=== PATIENT | female | born 1965 | race Hispanic/Latino ===

== ENCOUNTER 2017-09-07 15:11 | Emergency (ER) | payer BC ==
--- OUTSIDE RECORDS SUMMARY | 2017-09-07 15:14 | XMS REPORT | Clinical Summary ---
:1965 Author Organization [facility] Address [address] [place] [address] Care Team Providers Name Role Phone Asked, No Pcp Primary Care Provider Unavailable Allergies No Known Allergies Current Medications Prescription Sig. Disp. Refills Start Date End Date Status levothyroxine (SYNTHROID, Take 88 mcg by 3 04/08/2016 Active LEVOXYL) 88 mcg tablet mouth once daily. CONTOUR NEXT STRIPS strip once daily. 1 03/02/2016 Active test strips cephalexin (KEFLEX) 500 MG TAKE 1 CAPSULE 2 03/20/2016 Active capsule EVERY 8 HOURS DIRECTED cyclobenzaprine (FLEXERIL) Take 5 mg by mouth 1 03/26/2016 Active 5 mg tablet every 12 (twelve) hours as needed. glipiZIDE (GLUCOTROL) 10 Take 10 mg by 1 03/07/2016 Active MG 24 hr tablet mouth once daily. HYDROcodone-acetaminophen TAKE 1 TABLET BY 0 03/21/2016 Active (NORCO) 10-325 mg per MOUTH EVERY 4 TO 6 tablet HOURS NEEDED FOR PAIN metFORMIN (GLUCOPHAGE) Take 1,000 mg by 1 03/07/2016 Active 1,000 mg tablet mouth 2 (two) times a day. ondansetron (ZOFRAN) 4 MG Take 4 mg by mouth 2 03/20/2016 Active tablet every 8 (eight) hours as needed. LIVALO 4 mg tablet 04/08/2016 Active valACYclovir (VALTREX) 500 Take 500 mg by 4 02/14/2016 Active MG tablet mouth once daily. Active Problems Problem Noted Date Ductal carcinoma in situ (DCIS) of right breast 05/02/2016 Family History Medical History Relation Name Comments No Known Problems Daughter No Known Problems Daughter No Known Problems Daughter Cirrhosis Father No Known Problems Maternal Grandfather no info No Known Problems Maternal Grandmother no info COPD Mother No Known Problems Other maternal aunts/uncles 24 maternal aunts/uncles, no known info Ovarian cancer Paternal Aunt No Known Problems Paternal Aunt x4, 70s No Known Problems Paternal Grandfather no info Breast cancer Paternal Grandmother No Known Problems Paternal Uncle No Known Problems Paternal Uncle No Known Problems Sister Breast cancer Sister IDC Breast cancer Sister DCIS No Known Problems Son Relation Name Status Comments Daughter Alive Daughter Alive Daughter Alive Father (Age 49) Maternal Grandfather Maternal Grandmother Mother (Age 72) Other maternal aunts/uncles x24 Paternal Aunt (Age 60) Paternal Aunt Alive Paternal Grandfather Paternal Grandmother (Age 60) Paternal Uncle (Age 50) Paternal Uncle Alive Sister Alive Sister Alive Sister Alive Son Alive Social History Tobacco Use Types Packs/Day Years Used Date Former Smoker Sex Assigned at Date Recorded Not on file Last Filed Vital Signs Not on file Plan of Treatment Health Maintenance Due Date Last Done Comments CERVICAL CANCER SCREENING 1985 BREAST CANCER SCREENING 2014 COLON CANCER SCREENING 2014 SHINGRIX VACCINE (#1) 2014 INFLUENZA VACCINE 10/31/2017 Results Not on fileafter 09/06/2016 Insurance Payer Benefit Plan / Group Subscriber ID Type Phone Address BCBS BCBS CHOICE PPO/FEDERAL EMPL PPO xxxxxxxxx PPO y [phone] [place] [address]
[2017-09-07] MEDS ORDERED: ONDANSETRON 4 MG/2 ML VIAL ONE (16:48)
[2017-09-07] MEDS ORDERED: MORPHINE 4 MG/ML SYR ONE (16:48)
[2017-09-07] MEDS ORDERED: KETOROLAC 30 MG/ML INJ ONE (16:48)
[2017-09-07] MEDS ORDERED: METHOCARBAMOL 1,000 MG in NA CHLORIDE 0.9% 100 ML IV SCH (17:00)
--- NOTE | 2017-09-07 17:06 | RAD REPORT ---
EXAM DESCRIPTION: RAD - Chest Single View - 09/07/2017 5:01 pm CLINICAL HISTORY: Chest pain. COMPARISON: 08/22/2017, 12/02/2016 FINDINGS: Portable technique limits examination quality. The lungs are grossly clear. The heart is normal in size. No displaced fractures. IMPRESSION: No acute intrathoracic process suspected.
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
--- NOTE | 2017-09-07 17:53 | ER ---
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 Transition of care: patient was not received from another setting of care. Onset of symptoms was September 07, 2017. Risk Assessment: Do you want to hurt yourself or someone else? Patient reports no desire to harm self or others. Initial Sepsis Screen: Does the patient meet any 2 criteria? No. Patient's initial sepsis screen is negative. Does the patient have a suspected source of infection? No. Patient's initial sepsis screen is negative. Care prior to arrival: Medication(s) given: Tylenol, and cyclobenzaprine at 1000. 15:31 Method Of Arrival: Ambulatory ph 15:31 Acuity: BELKIS 4 ph Historical: - Allergies: 15:36 Symbicort; ph - PMHx: 15:36 Diabetes - NIDDM; High Cholesterol; ph - PSHx: 15:36 masectomy R side; ph - Immunization history:: Adult Immunizations unknown. - Social history:: Smoking status: Patient/guardian denies using tobacco. - Ebola Screening: : No symptoms or risks identified at this time. Screenin:15 Abuse screen: Denies threats or abuse. Denies injuries from another. Nutritional ss screening: No deficits noted. Tuberculosis screening: Never had TB. Fall Risk None identified. Assessment: 16:20 General: Appears distressed, uncomfortable, Behavior is cooperative, anxious, crying, ss Denies fever, feeling ill, fatigue, chills. Pain: Complains of pain in upper back, mid back Pain currently is 10 out of 10 on a pain scale. Quality of pain is described as aching, pinching, Pain began yesterday Is continuous, Aggravated by increased activity, repositioning, weight bearing, Noted to be crying, grimacing, quiet/stoic. Neuro: Level of Consciousness is awake, alert, obeys commands, Oriented to person, place, time, situation. Cardiovascular: Capillary refill < 3 seconds is brisk in bilateral fingers. Respiratory: Airway is patent Trachea midline Respiratory effort is even, unlabored. GI: Patient currently denies diarrhea, nausea, vomiting. EENT: Nares are clear Oral mucosa is moist. Throat is clear. Derm: Skin is intact, is healthy with good turgor, Skin is dry, Skin is pink, warm \\T\\ dry. normal. Musculoskeletal: Circulation, motion, and sensation intact. Range of motion: intact in all extremities, Swelling absent. 16:57 Reassessment: 4 mg of morphine initially ordered. after half of ordered morphine was ss administered, pt stated she did not like the way it made her feel and would not like to receive anymore medication. 18:04 Reassessment: Patient appears in no apparent distress at this time. Patient and/or ss family updated on plan of care and expected duration. Pain level reassessed. Patient is alert, oriented x 3, equal unlabored respirations, skin warm/dry/pink. Patient states feeling better. Patient states symptoms have improved. Pain: Pain currently is 3 out of 10 on a pain scale. Vital Signs: 15:34 BP 151 / 94; Pulse 92; Resp 18; Temp 98.6; Pulse Ox 96% on R/A; Weight 84.37 kg; Height ph 4 ft. 11 in. (149.86 cm); 15:34 Body Mass Index 37.57 (84.37 kg, 149.86 cm) ph ED Course: 15:14 Patient arrived in ED. mr 15:15 Prerna Sue MD is Private Physician. mr 15:34 Triage completed. ph 15:36 Arm band placed on. ph 16:15 Guicho Florentino MD is Attending Physician. kdr 16:15 Patient has correct armband on for positive identification. Bed in low position. Call ss light in reach. 16:38 Jessie Joiner, NORRIS is Primary Nurse. ss 16:44 Inserted saline lock: 20 gauge in left antecubital area, using aseptic technique. Blood ss collected. 17:01 X-ray completed. Portable x-ray completed in exam room. Patient tolerated procedure ml well. 17:01 CXR XRAY In Process Unspecified. EDMS 17:51 Prerna Sue MD is Referral Physician. kdr 18:07 No provider procedures requiring assistance completed. ss 18:15 IV discontinued, intact, bleeding controlled, No redness/swelling at site. Pressure ss dressing applied. Administered Medications: 14:56 Drug: morphine 2 mg Route: IVP; Site: left antecubital; ss 18:14 Follow up: Response: No adverse reaction; Pain is decreased ss 16:52 Drug: Zofran 4 mg Route: IVP; Site: left antecubital; ss 18:15 Follow up: Response: No adverse reaction ss 16:56 Drug: TORadol 30 mg Route: IVP; Site: left antecubital; ss 18:15 Follow up: Response: No adverse reaction; Pain is decreased ss 16:56 CANCELLED (Other Intervention Used): morphine 4 mg IVP once ss 17:14 Drug: Robaxin 1 grams Route: IVPB; Infused Over: 1 hrs; Site: left antecubital; ss 18:16 Follow up: IV Status: Completed infusion ss Outcome: 17:52 Discharge ordered by . kdr 18:15 Discharged to home via wheelchair, with family. ss 18:15 Condition: improved 18:15 Discharge instructions given to patient, family, Instructed on discharge instructions, follow up and referral plans. medication usage, Demonstrated understanding of instructions, follow-up care, Prescriptions given X 3. 18:16 Patient left the ED. ss Signatures: Dispatcher [employer] EDGuicho Tellez MD MD [facility] Massiel Silver, Jessie Ortega RN RN Albania Ochoa RN RN ph
== END 2017-09-07 18:16 | disposition home or self-care (01) ==
LOC: ER 15:11
DX: M79.1 Myalgia (principal); M62.830 Muscle spasm of back; Z88.8 Allergy status to other drugs, medicaments and biological substances
CPT/HCPCS: 71045; 96365; 96375; 99284; J2405; J2800

== ENCOUNTER 2017-11-17 10:29 | Emergency (ER) | payer BC ==
--- OUTSIDE RECORDS SUMMARY | 2017-11-17 10:31 | XMS REPORT | Clinical Summary ---
:1965 Author Organization [facility] Address [address] [place] [address] Care Team Providers Name Role Phone Asked, [...] INFLUENZA VACCINE 10/31/2017 Results Not on fileafter 11/16/2016 Insurance Payer Benefit Plan / Group Subscriber ID Type Phone Address BCBS BCBS CHOICE PPO/FEDERAL EMPL PPO xxxxxxxxx PPO y [phone] [place] [address]
[2017-11-17] MEDS ORDERED: IBUPROFEN 400 MG TAB ONE (11:34)
--- NOTE | 2017-11-17 11:40 | RAD REPORT ---
EXAM DESCRIPTION: RAD - Ankle Left 3 View -11/17/2017 11:26 am CLINICAL HISTORY: Left ankle pain status post injury FINDINGS: No fracture or dislocation is seen. Soft tissue swelling is present
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
--- NOTE | 2017-11-17 12:13 | EDPHYS ---
Physician Documentation [facility] Name: Vanessa Roger Age: 52 yrs Sex: Female : 1965 Arrival Date: 11/17/2017 Time: 10:32 Bed 14 Private MD: Prerna Sue C ED Physician Vince Caldwell HPI: 11/17 12:08 This 52 yrs old Female presents to ER via Ambulatory with complaints of Fall snw Injury. 12:08 Details of fall: The patient fell from an upright position, while walking. Onset: The snw symptoms/episode began/occurred suddenly, 1 day(s) ago. Associated injuries: The patient sustained left lateral malleolus and right knee, decreased range of motion. Severity of symptoms: At their worst the symptoms were moderate. The patient has not experienced similar symptoms in the past. The patient has not recently seen a physician, the patient's primary care provider is Dr. Dr. Sue. 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 YARDER: 10:52 LMP N/A - Post-menopause aj Historical: - Allergies: 10:52 Symbicort; aj - Home Meds: 10:52 Breo Ellipta 200-25 mcg/dose inhalation dsdv 1 puff once daily [Active]; ProAir HFA aj inhalation inhalation [Active]; Glucotrol XL Oral [Active]; Metformin Oral [Active]; levothyroxine oral [Active]; - PMHx: 10:52 Diabetes - NIDDM; High Cholesterol; aj - PSHx: 10:52 masectomy R side; aj - Immunization history:: Adult Immunizations up to date. - Social history:: Smoking status: Patient/guardian denies using tobacco. - Ebola Screening: : Patient negative for fever greater than or equal to 101.5 degrees Fahrenheit, and additional compatible Ebola Virus Disease symptoms Patient denies exposure to infectious person Patient denies travel to an Ebola-affected area in the 21 days before illness onset No symptoms or risks identified at this time. ROS: 11:58 Constitutional: Negative for fever, chills, and weight loss, Eyes: Negative for injury, snw pain, redness, and discharge, ENT: Negative for injury, pain, and discharge, Neck: Negative for injury, pain, and swelling, Cardiovascular: Negative for chest pain, palpitations, and edema, Respiratory: Negative for shortness of breath, cough, wheezing, and pleuritic chest pain, Abdomen/GI: Negative for abdominal pain, nausea, vomiting, diarrhea, and constipation, Back: Negative for injury and pain, Skin: Negative for injury, rash, and discoloration, Neuro: Negative for headache, weakness, numbness, tingling, and seizure. 11:58 MS/extremity: Positive for injury or acute deformity, pain, of the left lateral malleolus and left medial malleolus, also tender to right knee s/p fall. Exam: 11:58 Constitutional: This is a well developed, well nourished patient who is awake, alert, snw and in no acute distress. Head/Face: Normocephalic, atraumatic. Eyes: Pupils equal round and reactive to light, extra-ocular motions intact. Lids and lashes normal. Conjunctiva and sclera are non-icteric and not injected. Cornea within normal limits. Periorbital areas with no swelling, redness, or edema. ENT: Nares patent. No nasal discharge, no septal abnormalities noted. Tympanic membranes are normal and external auditory canals are clear. Oropharynx with no redness, swelling, or masses, exudates, or evidence of obstruction, uvula midline. Mucous membranes moist. Neck: Trachea midline, no thyromegaly or masses palpated, and no cervical lymphadenopathy. Supple, full range of motion without nuchal rigidity, or vertebral point tenderness. No Meningismus. Chest/axilla: Normal chest wall appearance and motion. Nontender with no deformity. No lesions are appreciated. Cardiovascular: Regular rate and rhythm with a normal S1 and S2. No gallops, murmurs, or rubs. Normal PMI, no JVD. No pulse deficits. Respiratory: Lungs have equal breath sounds bilaterally, clear to auscultation and percussion. No rales, rhonchi or wheezes noted. No increased work of breathing, no retractions or nasal flaring. Abdomen/GI: Soft, non-tender, with normal bowel sounds. No distension or tympany. No guarding or rebound. No evidence of tenderness throughout. Back: No spinal tenderness. No costovertebral tenderness. Full range of motion. Skin: Warm, dry with normal turgor. Normal color with no rashes, no lesions, and no evidence of cellulitis. Neuro: Awake and alert, GCS 15, oriented to person, place, time, and situation. Cranial nerves II-XII grossly intact. Motor strength 5/5 in all extremities. Sensory grossly intact. Cerebellar exam normal. Normal gait. Psych: Awake, alert, with orientation to person, place and time. Behavior, mood, and affect are within normal limits. 11:58 Musculoskeletal/extremity: Extremities: grossly normal except: noted in the left lateral ankle: swelling, tenderness, ROM: pain with flexion of left ankle, Circulation is intact in all extremities. Sensation intact. 11:58 Musculoskeletal/extremity: Extremities: noted in the right knee: tenderness. Vital Signs: 10:52 BP 133 / 77; Pulse 70; Resp 17; Temp 98.9; Pulse Ox 98% on R/A; Weight 83.91 kg; Height aj 5 ft. 0 in. (152.40 cm); 11:56 BP 113 / 83; Pulse 68; Resp 16; Pulse Ox 100% ; aj 10:52 Body Mass Index 36.13 (83.91 kg, 152.40 cm) aj MDM: 10:42 Patient medically screened. snw 12:17 Data reviewed: vital signs, nurses notes. Data interpreted: Pulse oximetry: on room air snw is 100 %. Interpretation: normal. Counseling: I had a detailed discussion with the patient and/or guardian regarding: the historical points, exam findings, and any diagnostic results supporting the discharge/admit diagnosis, the presence of at least one elevated blood pressure reading (>120/80) during this emergency department visit, radiology results, the need for outpatient follow up, for definitive care, to return to the emergency department if symptoms worsen or persist or if there are any questions or concerns that arise at home. Special discussion: I have referred the patient to see his PCP for further evaluation of high blood pressure. Based on the history and exam findings, there is no indication for further emergent testing or inpatient evaluation. I discussed with the patient/guardian the need to see the orthopedic surgeon for further evaluation of the symptoms. I discussed with the patient/guardian the need to see the primary care provider for further evaluation of the symptoms. 11/17 10:55 Order name: XRAY Ankle LEFT 3 view; Complete Time: 11:46 aj 11/17 10:55 Order name: XRAY Knee RIGHT 3 view; Complete Time: 14:42 aj 11/17 12:10 Order name: Walking boot; Complete Time: 12:21 snw 11/17 12:22 Order name: Krunal Wrap; Complete Time: 12:22 Administered Medications: 11:31 Not Given (Physician Discretion): [place] 5 mg-325 mg 1 tabs PO once aj Disposition: 16:12 Co-signature as Attending Physician, Vince Caldwell MD. Disposition: 11/17/17 12:11 Discharged to Home. Impression: Fall on same level from slipping, tripping and stumbling, Sprain of ankle, Pain in right knee. - Condition is Stable. - Discharge Instructions: Elastic Bandage and RICE, Ankle Sprain, Arthritis, Cast or Splint Care, Adult, Hypertension, Knee Pain, Ankle Pain, Cryotherapy, Heat Therapy. - Prescriptions for Diclofenac Sodium 75 mg Oral Tablet Sustained Release - take 1 tablet by ORAL route 2 times per day; 30 tablet. orphenadrine citrate 100 mg Oral Tablet Sustained Release - take 1 tablet by ORAL route 2 times per day As needed; 20 tablet. - Work release form, Medication Reconciliation Form, Thank You Letter, Antibiotic Education, Prescription Opioid Use form. - Follow up: Prerna Sue MD; When: 1 week; Reason: Recheck today's complaints, Continuance of care, Re-evaluation by your physician. Follow up: Meño Goncalves MD; When: 1 - 2 days; Reason: Recheck today's complaints, Continuance of care. 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 Impression: Fall on same level from slipping, tripping and stumbling; Sprain of ankle; Pain in right knee. Condition is Stable. Forms are Medication Reconciliation Form, Thank You Letter, Antibiotic Education, Prescription Opioid Use. Follow up: Prerna Sue; When: 1 week; Reason: Recheck today's complaints, Continuance of care, Re-evaluation by your physician. Follow up: Dr. Meño Goncalves; When: 1 - 2 days; Reason: Recheck today's complaints, Continuance of care. [facility] 15:08 12:35 11/17/2017 12:11 Discharged to Home. Impression: Fall on same level from bd slipping, tripping and stumbling; Sprain of ankle; Pain in right knee. Condition is Stable. Discharge Instructions: Elastic Bandage and RICE, Ankle Sprain, Arthritis, Cast or Splint Care, Adult, Hypertension, Knee Pain, Ankle Pain, Cryotherapy, Heat Therapy. Prescriptions for Diclofenac Sodium 75 mg Oral Tablet Sustained Release - take 1 tablet by ORAL route 2 times per day; 30 tablet, orphenadrine citrate 100 mg Oral Tablet Sustained Release - take 1 tablet by ORAL route 2 times per day As needed; 20 tablet. and Forms are Medication Reconciliation Form, Thank You Letter, Antibiotic Education, Prescription Opioid Use, Work release form. Follow up: Prerna Sue; When: 1 week; Reason: Recheck today's complaints, Continuance of care, Re-evaluation by your physician. Follow up: Dr. Meño Goncalves; When: 1 - 2 days; Reason: Recheck today's complaints, Continuance of care. aj
--- NOTE | 2017-11-17 12:53 | RAD REPORT ---
EXAM DESCRIPTION: RAD - Knee Right 3 View - 11/17/2017 11:28 am CLINICAL HISTORY: Left knee pain status post fall FINDINGS: The bones appear osteoporotic. Moderate to marked osteoarthritis involves the medial lino rtment. Cortical irregularity involves the lateral tibial plateau. Given that there does not appear to be a s ignificant joint effusion this probably is not acute. No dislocation is noted If the patient continues have symptoms to suggest an occult fracture, ligamentous or meniscal injury then an MRI would be recommended.
== END 2017-11-17 15:08 | disposition home or self-care (01) ==
LOC: ER 10:29
DX: S93.401A Sprain of unspecified ligament of right ankle, initial encounter (principal); W01.0XXA Fall on same level from slipping, tripping and stumbling without subsequent striking against object, initial encounter; Y93.01 Activity, walking, marching and hiking; Y92.019 Unspecified place in single-family (private) house as the place of occurrence of the external cause; M25.561 Pain in right knee; Z88.6 Allergy status to analgesic agent; E11.9 Type 2 diabetes mellitus without complications; Z79.84 Long term (current) use of oral hypoglycemic drugs; E78.00 Pure hypercholesterolemia, unspecified
CPT/HCPCS: 99283